=== PATIENT | male | born 1980 | race Caucasian/White ===

== ENCOUNTER 2022-03-23 08:06 | Emergency (ER) | payer OTHER ==
[~2022-03-23] VITALS: Ht 172.7 cm; Wt 79.4 kg
[2022-03-23 08:11] VITALS: BP 156/90
--- NOTE | 2022-03-23 08:11 | NUR ---
TO ER BED 9. BIB RA 878 C/O NECK PAIN R/T BILAT SHOULDER SUDDEN ONSET AT AROUND 0705. PT IS ABLE TO AMBULATE ON HIS OWN. AWAITING MD ORDERS.
--- NOTE | 2022-03-23 08:26 | NUR ---
DR SHEFFIELD AT BEDSIDE FOR EVAL
[2022-03-23] MEDS ORDERED: CYCLOBENZAPRINE 10 MG TABLET PO ONE (08:30)
[2022-03-23] MEDS ORDERED: LIDOCAINE 5% (PATCH) 1 EA PATCH TP SCH (08:30)
[2022-03-23] MEDS ORDERED: KETOROLAC TROMETHAMINE INJ 60 MG/2 ML VIAL IM ONE (08:30)
[2022-03-23] MEDS ORDERED: CYCLOBENZAPRINE 10 MG TABLET ONE (08:31)
[2022-03-23] MEDS ORDERED: KETOROLAC TROMETHAMINE INJ 30 MG/ML VIAL ONE (08:31)
[2022-03-23] MEDS ORDERED: LIDOCAINE 5% (PATCH) 1 EA PATCH TP ONE (08:31)
[2022-03-23] MEDS ORDERED: CYCL10TA9 PO (09:00)
[2022-03-23] MEDS ORDERED: LIDO30AD10 TP (09:00)
--- NOTE | 2022-03-23 09:00 | NUR ---
TORADOL IM GIVEN LEFT DELTOID; LIDOCAINE PATCH AND FLEXERIL PO ADMINISTERED INDICATED, JESUS ALBERTO WELL.
--- NOTE | 2022-03-23 09:07 | NUR ---
Patient discharged to home in stable condition. Written and verbal after care instructions given. Patient verbalizes understanding of instruction.
== END 2022-03-23 09:12 | disposition home or self-care (01) ==
LOC: ER 08:08
DX: M54.6 Pain in thoracic spine (principal)
CPT/HCPCS: 99283; 96372; J1885